=== PATIENT | female | born 1975 | race Caucasian/White ===

== ENCOUNTER 2021-03-17 18:04 | Inpatient (IN) | payer OTHER, MEDICARE ==
[~2021-03-17 18:04] MED LIST: Iopamidol 370 76% 100 ML VIAL ONE
[2021-03-17 18:46] LABS: Actual Bicarbonate (HCO3a) 23.6 mEq/L (22-28); Analyzer IN Cardio ER; Base Excess (BEa) -0.3 mEq/L (-2.0 to +3.0); CO2 Tension 35.9 mmHg (35.0-45.0); Calcium, Ionized (arterial) 1.06 mmol/L (1.12-1.30); Carboxyhemoglobin (COHb) 0.3 gm% (0.0-3.0); Hemoglobin (Hb) 11.1 g/dL (12.0-16.0); O2 Tension (PaO2), arterial 150.8 mmHg (80.0-100.0); Potassium - ABG Lab 3.92 mmol/L (3.70-5.30); pH, Arterial 7.44 (7.35-7.45)
[2021-03-17 18:48] LABS: ALV-art Gradient 517.325 mmHg (0-20); Puncture Site RRA
[2021-03-17] MEDS ORDERED: Lorazepam 2 MG/ML VIAL ONE (19:38)
[2021-03-17] MEDS ORDERED: Acetaminophen 325 MG TAB PO PRN (20:05)
[2021-03-17] MEDS ORDERED: Ondansetron PF 4 MG/2 ML Vial IVP PRN (20:05)
[2021-03-17] MEDS ORDERED: Acetaminophen 500 MG TAB ONE (20:09)
[2021-03-17] MEDS ORDERED: Dextrose 5% in Water 1,000 ML IV PRN (20:10)
[2021-03-17] MEDS ORDERED: Dextrose 50% Abboject 50 ML SYRINGE SLOW IVP PRN (20:10)
[2021-03-17] MEDS ORDERED: HumaLOG 300 UNITS/3 ML VIAL SC PRN (20:10)
[2021-03-17] MEDS ORDERED: Loperamide HCl 2 MG CAP PO PRN (20:11)
[2021-03-17 20:34] LABS: Hemoglobin 10.6 g/dL (12.0-16.0); Mean Corpuscular Hemoglobin 28.7 pg (27.0-31.0); Mean Corpuscular Volume 92.8 fL (78.0-98.0); RBC Distribution Width 14.4 % (11.5-14.5); Red Blood Cell (RBC) Count 3.68 mill/uL (4.20-5.40)
[2021-03-17 20:41] LABS: ALT (SGPT) 25 U/L (8-55); AST (SGOT) 58 U/L (5-34); Alkaline Phosphatase 54 U/L (40-110); Anion Gap 15 mmol/L (10-20); BUN (Urea Nitrogen) 20 mg/dL (7.0-18.7); Bilirubin, Total 0.3 mg/dL (0.2-1.2); CK (CPK) 858 U/L (29-168); Calc. Creatinine Clearance 0 mL/min (70-130); Calcium 7.6 mg/dL (7.8-10.44); Carbon Dioxide 20 mmol/L (22-29); Chloride 108 mmol/L (98-107); Globulin 3.1 g/dL (2.4-3.5); Glucose 125 mg/dL (70-105); Potassium 4.3 mmol/L (3.5-5.1); Protein, Total 6.1 g/dL (6.0-8.3); Sodium 139 mmol/L (136-145)
[2021-03-17 20:57] LABS: Band 8 % (5-11); Lymphocytes 8 % (21-51); MDiff Complete? YES; Mean Platelet Volume 7.8 fL (7.4-10.4); Monocytes 4 % (0-10); Neutrophil 80 % (42-75); Platelet Count 291 thou/uL (130-400); White Blood Cell (WBC) Count 9.9 thou/uL (4.8-10.8)
[2021-03-17 21:02] LABS: CKMB 2.4 ng/mL (0-6.6)
[2021-03-18] MEDS: Albuterol 200 PUFF (6.7GM INHALER) INH PRN (00:21)
[2021-03-18] MEDS: Apixaban 5 MG TAB PO SCH ×3 (00:21→20:45)
[2021-03-18] MEDS ORDERED: Cephalexin 250 MG/5 ML Oral Suspension PO SCH (03:00)
[2021-03-18 04:19] LABS: #Lymphocytes 1.2 thou/uL (1.20-3.40); #Monocytes 0.4 thou/uL (0.11-0.59); #Neutrophils 8.1 thou/uL (1.40-6.50); %Basophils 0.2 % (0.0-1.0); %Eosinophils 0.2 % (0.0-10.0); %Lymphocytes 12.2 % (21.0-51.0); %Monocytes 3.8 % (0.0-10.0); %Neutrophils 83.6 % (42.0-75.0); Mean Corpuscular Hemoglobin 28.5 pg (27.0-31.0); Mean Corpuscular Volume 91.9 fL (78.0-98.0); Mean Platelet Volume 8.2 fL (7.4-10.4); Platelet Count 294 thou/uL (130-400); RBC Distribution Width 14.5 % (11.5-14.5); Red Blood Cell (RBC) Count 3.87 mill/uL (4.20-5.40); White Blood Cell (WBC) Count 9.7 thou/uL (4.8-10.8)
[2021-03-18 04:23] LABS: Anion Gap 14 mmol/L (10-20); BUN (Urea Nitrogen) 23 mg/dL (7.0-18.7); Calc. Creatinine Clearance 151 mL/min (70-130); Calcium 8.3 mg/dL (7.8-10.44); Carbon Dioxide 23 mmol/L (22-29); Chloride 106 mmol/L (98-107); Glucose 122 mg/dL (70-105); Potassium 4.1 mmol/L (3.5-5.1); Sodium 139 mmol/L (136-145)
[2021-03-18 04:25] LABS: CRP (Inflammatory) 13.5 mg/dL (= or < 0.5)
[2021-03-18] MEDS: Pantoprazole 40 MG VIAL IVP SCH (10:03)
[2021-03-18] MEDS: Cephalexin 250 MG/5 ML Oral Suspension PO SCH ×4 (10:03→20:45)
[2021-03-18] MEDS: BARICITINIB 2 MG TAB PO SCH (10:03)
[2021-03-18] MEDS: Dexamethasone 10 MG/ML VIAL SLOW IVP SCH ×2 (10:03→20:45)
[2021-03-18] MEDS: Cholecalciferol 1,000 UNITS (25 MCG) TAB PO SCH (10:04)
[2021-03-18] MEDS: Zinc Sulfate 220 MG CAP PO SCH (10:04)
[2021-03-18] MEDS: Saccharomyces boulardii 250 MG CAP PO SCH (14:24)
[2021-03-18] MEDS: Lorazepam 0.5 MG TAB PO PRN (21:52)
[2021-03-19 04:12] LABS: #Lymphocytes 0.8 thou/uL (1.20-3.40); #Monocytes 0.3 thou/uL (0.11-0.59); #Neutrophils 9.2 thou/uL (1.40-6.50); %Eosinophils 0.3 % (0.0-10.0); %Lymphocytes 7.9 % (21.0-51.0); %Monocytes 2.5 % (0.0-10.0); %Neutrophils 89.4 % (42.0-75.0); Hemoglobin 10.9 g/dL (12.0-16.0); Mean Corpuscular HGB CONC 30.9 g/dL (32.0-36.0); Mean Corpuscular Hemoglobin 29.4 pg (27.0-31.0); Mean Corpuscular Volume 95.1 fL (78.0-98.0); Mean Platelet Volume 8.3 fL (7.4-10.4); Platelet Count 279 thou/uL (130-400); RBC Distribution Width 14.6 % (11.5-14.5); Red Blood Cell (RBC) Count 3.71 mill/uL (4.20-5.40); White Blood Cell (WBC) Count 10.3 thou/uL (4.8-10.8)
[2021-03-19 04:18] LABS: Anion Gap 14 mmol/L (10-20); BUN (Urea Nitrogen) 25 mg/dL (7.0-18.7); Calc. Creatinine Clearance 204 mL/min (70-130); Calcium 8.6 mg/dL (7.8-10.44); Carbon Dioxide 22 mmol/L (22-29); Chloride 108 mmol/L (98-107); Glucose 134 mg/dL (70-105); Potassium 4.3 mmol/L (3.5-5.1); Sodium 140 mmol/L (136-145)
[2021-03-19 04:21] LABS: ALT (SGPT) 30 U/L (8-55); AST (SGOT) 49 U/L (5-34); Albumin 3.1 g/dL (3.5-5.0); Alkaline Phosphatase 57 U/L (40-110); Bilirubin, Direct 0.2 mg/dL (0.1-0.3); Bilirubin, Total 0.3 mg/dL (0.2-1.2); Protein, Total 6.7 g/dL (6.0-8.3)
[2021-03-19 04:23] LABS: Troponin I 0.029 ng/mL (< 0.028)
[2021-03-19] MEDS: Dexamethasone 10 MG/ML VIAL SLOW IVP SCH ×2 (09:51→20:37)
[2021-03-19] MEDS: Cholecalciferol 1,000 UNITS (25 MCG) TAB PO SCH (09:51)
[2021-03-19] MEDS: Zinc Sulfate 220 MG CAP PO SCH (09:51)
[2021-03-19] MEDS: Losartan 25 MG TAB PO SCH (09:51)
[2021-03-19] MEDS: Apixaban 5 MG TAB PO SCH ×2 (09:51→20:38)
[2021-03-19] MEDS: Cephalexin 250 MG/5 ML Oral Suspension PO SCH ×4 (09:51→20:38)
[2021-03-19] MEDS: Pantoprazole 40 MG VIAL IVP SCH (09:52)
[2021-03-19] MEDS: Lorazepam 0.5 MG TAB PO PRN ×2 (10:01→20:38)
[2021-03-19] MEDS: BARICITINIB 2 MG TAB PO SCH (10:02)
[2021-03-19] MEDS: Saccharomyces boulardii 250 MG CAP PO SCH (15:01)
[2021-03-19] MEDS: guaiFENesin ER 600 MG TAB PO SCH (20:38)
[2021-03-19] MEDS: Albuterol 200 PUFF (6.7GM INHALER) INH PRN (20:38)
[2021-03-20 04:21] LABS: #Lymphocytes 0.6 thou/uL (1.20-3.40); #Monocytes 0.3 thou/uL (0.11-0.59); #Neutrophils 9.2 thou/uL (1.40-6.50); %Eosinophils 0.1 % (0.0-10.0); %Lymphocytes 5.9 % (21.0-51.0); %Monocytes 3.4 % (0.0-10.0); %Neutrophils 90.6 % (42.0-75.0); Hemoglobin 10.8 g/dL (12.0-16.0); Mean Corpuscular HGB CONC 31.2 g/dL (32.0-36.0); Mean Corpuscular Hemoglobin 28.9 pg (27.0-31.0); Mean Corpuscular Volume 92.8 fL (78.0-98.0); Mean Platelet Volume 8.7 fL (7.4-10.4); Platelet Count 260 thou/uL (130-400); RBC Distribution Width 14.6 % (11.5-14.5); Red Blood Cell (RBC) Count 3.73 mill/uL (4.20-5.40); White Blood Cell (WBC) Count 10.1 thou/uL (4.8-10.8)
[2021-03-20 04:35] LABS: BUN (Urea Nitrogen) 25 mg/dL (7.0-18.7); Calc. Creatinine Clearance 182 mL/min (70-130); Calcium 8.3 mg/dL (7.8-10.44); Chloride 107 mmol/L (98-107); Glucose 201 mg/dL (70-105); Phosphorus 3.5 mg/dL (2.3-4.7); Potassium 4.2 mmol/L (3.5-5.1); Sodium 140 mmol/L (136-145)
[2021-03-20 04:37] LABS: CRP (Inflammatory) 3.18 mg/dL (= or < 0.5); Magnesium 2.6 mg/dL (1.6-2.6)
[2021-03-20] MEDS: Cephalexin 250 MG/5 ML Oral Suspension PO SCH (09:14)
[2021-03-20] MEDS: Zinc Sulfate 220 MG CAP PO SCH (09:15)
[2021-03-20] MEDS: Ascorbic Acid 500 mg Chewable Tablet PO SCH (09:15)
[2021-03-20] MEDS: Losartan 25 MG TAB PO SCH (09:15)
[2021-03-20] MEDS: Pantoprazole 40 MG VIAL IVP SCH (09:15)
[2021-03-20] MEDS: Cholecalciferol 1,000 UNITS (25 MCG) TAB PO SCH (09:15)
[2021-03-20] MEDS: Dexamethasone 10 MG/ML VIAL SLOW IVP SCH ×2 (09:15→21:05)
[2021-03-20] MEDS: BARICITINIB 2 MG TAB PO SCH (09:15)
[2021-03-20] MEDS: guaiFENesin ER 600 MG TAB PO SCH ×2 (09:15→21:05)
[2021-03-20] MEDS: Multivit, Therapeutic 1 TAB PO SCH (09:15)
[2021-03-20] MEDS: Apixaban 5 MG TAB PO SCH ×2 (09:15→21:05)
[2021-03-20] MEDS: Saccharomyces boulardii 250 MG CAP PO SCH (16:24)
[2021-03-20] MEDS: Lorazepam 0.5 MG TAB PO PRN (21:05)
[2021-03-21 05:22] LABS: #Lymphocytes 0.7 thou/uL (1.20-3.40); #Monocytes 0.2 thou/uL (0.11-0.59); #Neutrophils 8.2 thou/uL (1.40-6.50); %Basophils 0.1 % (0.0-1.0); %Eosinophils 0.2 % (0.0-10.0); %Lymphocytes 7.9 % (21.0-51.0); %Monocytes 2.7 % (0.0-10.0); %Neutrophils 89.2 % (42.0-75.0); Hemoglobin 11.3 g/dL (12.0-16.0); Mean Corpuscular HGB CONC 31.9 g/dL (32.0-36.0); Mean Corpuscular Hemoglobin 29.3 pg (27.0-31.0); Mean Corpuscular Volume 91.7 fL (78.0-98.0); Mean Platelet Volume 8.4 fL (7.4-10.4); Platelet Count 243 thou/uL (130-400); RBC Distribution Width 14.3 % (11.5-14.5); Red Blood Cell (RBC) Count 3.86 mill/uL (4.20-5.40); White Blood Cell (WBC) Count 9.2 thou/uL (4.8-10.8)
[2021-03-21 05:56] LABS: BUN (Urea Nitrogen) 25 mg/dL (7.0-18.7); CRP (Inflammatory) 1.35 mg/dL (= or < 0.5); Calc. Creatinine Clearance 209 mL/min (70-130); Calcium 8.6 mg/dL (7.8-10.44); Chloride 106 mmol/L (98-107); Glucose 150 mg/dL (70-105); Potassium 4.4 mmol/L (3.5-5.1); Sodium 140 mmol/L (136-145)
[2021-03-21] MEDS: Cholecalciferol 1,000 UNITS (25 MCG) TAB PO SCH (09:21)
[2021-03-21] MEDS: Dexamethasone 10 MG/ML VIAL SLOW IVP SCH ×2 (09:21→21:12)
[2021-03-21] MEDS: Losartan 25 MG TAB PO SCH (09:21)
[2021-03-21] MEDS: BARICITINIB 2 MG TAB PO SCH (09:21)
[2021-03-21] MEDS: guaiFENesin ER 600 MG TAB PO SCH ×2 (09:22→21:12)
[2021-03-21] MEDS: Multivit, Therapeutic 1 TAB PO SCH (09:22)
[2021-03-21] MEDS: Ascorbic Acid 500 mg Chewable Tablet PO SCH (09:22)
[2021-03-21] MEDS: Zinc Sulfate 220 MG CAP PO SCH (09:22)
[2021-03-21] MEDS: Apixaban 5 MG TAB PO SCH ×2 (09:22→21:12)
[2021-03-21 16:23] LABS: Anion Gap 19 mmol/L (10-20); Carbon Dioxide 18 mmol/L (22-29)
[2021-03-21 16:23] LABS: Carbon Dioxide 23 mmol/L (22-29)
[2021-03-21 16:24] LABS: Anion Gap 15 mmol/L (10-20)
[2021-03-21] MEDS: Saccharomyces boulardii 250 MG CAP PO SCH (16:48)
[2021-03-21] MEDS: Lorazepam 0.5 MG TAB PO PRN (21:13)
[2021-03-22 03:32] LABS: #Basophils 0.1 thou/uL (0.0-0.2); #Lymphocytes 0.7 thou/uL (1.20-3.40); #Monocytes 0.2 thou/uL (0.11-0.59); #Neutrophils 8.3 thou/uL (1.40-6.50); %Basophils 0.6 % (0.0-1.0); %Eosinophils 0.2 % (0.0-10.0); %Lymphocytes 7.4 % (21.0-51.0); %Monocytes 1.9 % (0.0-10.0); %Neutrophils 89.9 % (42.0-75.0); Hemoglobin 11.3 g/dL (12.0-16.0); Mean Corpuscular HGB CONC 31.8 g/dL (32.0-36.0); Mean Corpuscular Volume 91.1 fL (78.0-98.0); Mean Platelet Volume 8.6 fL (7.4-10.4); Platelet Count 214 thou/uL (130-400); RBC Distribution Width 14.3 % (11.5-14.5); Red Blood Cell (RBC) Count 3.88 mill/uL (4.20-5.40); White Blood Cell (WBC) Count 9.2 thou/uL (4.8-10.8)
[2021-03-22 03:47] LABS: ALT (SGPT) 64 U/L (8-55); AST (SGOT) 54 U/L (5-34); Albumin 3.2 g/dL (3.5-5.0); Alkaline Phosphatase 70 U/L (40-110); Anion Gap 12 mmol/L (10-20); BUN (Urea Nitrogen) 22 mg/dL (7.0-18.7); Bilirubin, Direct 0.2 mg/dL (0.1-0.3); Bilirubin, Total 0.3 mg/dL (0.2-1.2); Calc. Creatinine Clearance 182 mL/min (70-130); Calcium 8.4 mg/dL (7.8-10.44); Carbon Dioxide 26 mmol/L (22-29); Chloride 103 mmol/L (98-107); Glucose 218 mg/dL (70-105); Potassium 4.4 mmol/L (3.5-5.1); Protein, Total 6.6 g/dL (6.0-8.3); Sodium 137 mmol/L (136-145)
[2021-03-22] MEDS: BARICITINIB 2 MG TAB PO SCH (10:20)
[2021-03-22] MEDS: guaiFENesin ER 600 MG TAB PO SCH ×2 (10:20→21:57)
[2021-03-22] MEDS: Cholecalciferol 1,000 UNITS (25 MCG) TAB PO SCH (10:20)
[2021-03-22] MEDS: Zinc Sulfate 220 MG CAP PO SCH (10:20)
[2021-03-22] MEDS: Losartan 25 MG TAB PO SCH (10:20)
[2021-03-22] MEDS: Apixaban 5 MG TAB PO SCH ×2 (10:20→21:57)
[2021-03-22] MEDS: Ascorbic Acid 500 mg Chewable Tablet PO SCH (10:20)
[2021-03-22] MEDS: Dexamethasone 10 MG/ML VIAL SLOW IVP SCH ×2 (10:21→21:57)
[2021-03-22] MEDS: Multivit, Therapeutic 1 TAB PO SCH (10:22)
[2021-03-22] MEDS: Saccharomyces boulardii 250 MG CAP PO SCH (16:59)
[2021-03-22] MEDS: Lorazepam 0.5 MG TAB PO PRN (21:57)
[2021-03-23] MEDS: Losartan 25 MG TAB PO SCH (10:00)
[2021-03-23] MEDS: Multivit, Therapeutic 1 TAB PO SCH (10:01)
[2021-03-23] MEDS: guaiFENesin ER 600 MG TAB PO SCH ×2 (10:01→20:35)
[2021-03-23] MEDS: Cholecalciferol 1,000 UNITS (25 MCG) TAB PO SCH (10:01)
[2021-03-23] MEDS: BARICITINIB 2 MG TAB PO SCH (10:01)
[2021-03-23] MEDS: Zinc Sulfate 220 MG CAP PO SCH (10:01)
[2021-03-23] MEDS: Ascorbic Acid 500 mg Chewable Tablet PO SCH (10:02)
[2021-03-23] MEDS: Dexamethasone 10 MG/ML VIAL SLOW IVP SCH ×2 (10:02→20:35)
[2021-03-23] MEDS: Apixaban 5 MG TAB PO SCH ×2 (10:02→20:35)
[2021-03-23] MEDS: Saccharomyces boulardii 250 MG CAP PO SCH (16:00)
[2021-03-23] MEDS: Lorazepam 0.5 MG TAB PO PRN (20:35)
[2021-03-24 04:02] LABS: #Eosinphils 0.1 thou/uL (0.0-0.7); #Lymphocytes 0.8 thou/uL (1.20-3.40); #Monocytes 0.2 thou/uL (0.11-0.59); #Neutrophils 9.5 thou/uL (1.40-6.50); %Eosinophils 0.8 % (0.0-10.0); %Lymphocytes 7.5 % (21.0-51.0); %Monocytes 1.5 % (0.0-10.0); %Neutrophils 90.2 % (42.0-75.0); Mean Corpuscular HGB CONC 32.2 g/dL (32.0-36.0); Mean Corpuscular Hemoglobin 28.6 pg (27.0-31.0); Mean Corpuscular Volume 88.8 fL (78.0-98.0); Mean Platelet Volume 8.2 fL (7.4-10.4); Platelet Count 253 thou/uL (130-400); RBC Distribution Width 14.4 % (11.5-14.5); White Blood Cell (WBC) Count 10.5 thou/uL (4.8-10.8)
[2021-03-24 04:18] LABS: Anion Gap 11 mmol/L (10-20); BUN (Urea Nitrogen) 22 mg/dL (7.0-18.7); CRP (Inflammatory) 0.94 mg/dL (= or < 0.5); Calc. Creatinine Clearance 226 mL/min (70-130); Calcium 8.8 mg/dL (7.8-10.44); Carbon Dioxide 24 mmol/L (22-29); Chloride 104 mmol/L (98-107); Glucose 182 mg/dL (70-105); Potassium 4.9 mmol/L (3.5-5.1); Sodium 134 mmol/L (136-145)
[2021-03-24] MEDS: HumaLOG 300 UNITS/3 ML VIAL SC PRN (06:03)
[2021-03-24] MEDS: Cholecalciferol 1,000 UNITS (25 MCG) TAB PO SCH (09:26)
[2021-03-24] MEDS: BARICITINIB 2 MG TAB PO SCH (09:26)
[2021-03-24] MEDS: Ascorbic Acid 500 mg Chewable Tablet PO SCH (09:26)
[2021-03-24] MEDS: Multivit, Therapeutic 1 TAB PO SCH (09:27)
[2021-03-24] MEDS: Losartan 25 MG TAB PO SCH (09:27)
[2021-03-24] MEDS: Dexamethasone 10 MG/ML VIAL SLOW IVP SCH ×2 (09:27→20:05)
[2021-03-24] MEDS: guaiFENesin ER 600 MG TAB PO SCH ×2 (09:27→20:05)
[2021-03-24] MEDS: Apixaban 5 MG TAB PO SCH ×2 (09:27→20:05)
[2021-03-24] MEDS: Zinc Sulfate 220 MG CAP PO SCH (09:27)
[2021-03-24] MEDS: Lorazepam 0.5 MG TAB PO PRN ×2 (09:32→23:09)
[2021-03-24] MEDS: Saccharomyces boulardii 250 MG CAP PO SCH (15:27)
[2021-03-25 04:14] LABS: ALT (SGPT) 75 U/L (8-55); AST (SGOT) 36 U/L (5-34); Albumin 3.2 g/dL (3.5-5.0); Alkaline Phosphatase 74 U/L (40-110); Bilirubin, Direct 0.2 mg/dL (0.1-0.3); Bilirubin, Total 0.5 mg/dL (0.2-1.2); Protein, Total 6.7 g/dL (6.0-8.3)
[2021-03-25] MEDS: Zinc Sulfate 220 MG CAP PO SCH (08:17)
[2021-03-25] MEDS: Apixaban 5 MG TAB PO SCH ×2 (08:17→20:50)
[2021-03-25] MEDS: Cholecalciferol 1,000 UNITS (25 MCG) TAB PO SCH (08:17)
[2021-03-25] MEDS: Multivit, Therapeutic 1 TAB PO SCH (08:17)
[2021-03-25] MEDS: guaiFENesin ER 600 MG TAB PO SCH ×2 (08:18→20:50)
[2021-03-25] MEDS: BARICITINIB 2 MG TAB PO SCH (08:18)
[2021-03-25] MEDS: Ascorbic Acid 500 mg Chewable Tablet PO SCH (08:18)
[2021-03-25] MEDS: Dexamethasone 10 MG/ML VIAL SLOW IVP SCH ×2 (08:18→20:50)
[2021-03-25] MEDS: Lorazepam 0.5 MG TAB PO PRN (08:39)
[2021-03-25] MEDS: Losartan 25 MG TAB PO SCH (10:02)
[2021-03-25] MEDS: HYDROcodone/Acetaminophen 5/325 mg Tablet PO PRN ×2 (12:47→20:50)
[2021-03-25] MEDS: Saccharomyces boulardii 250 MG CAP PO SCH (16:14)
[2021-03-26] MEDS: guaiFENesin ER 600 MG TAB PO SCH ×2 (07:47→21:13)
[2021-03-26] MEDS: Ascorbic Acid 500 mg Chewable Tablet PO SCH (07:47)
[2021-03-26] MEDS: Apixaban 5 MG TAB PO SCH ×2 (07:47→21:13)
[2021-03-26] MEDS: BARICITINIB 2 MG TAB PO SCH (07:47)
[2021-03-26] MEDS: Dexamethasone 10 MG/ML VIAL SLOW IVP SCH ×2 (07:48→21:13)
[2021-03-26] MEDS: Multivit, Therapeutic 1 TAB PO SCH (07:48)
[2021-03-26] MEDS: HYDROcodone/Acetaminophen 5/325 mg Tablet PO PRN ×2 (07:48→21:16)
[2021-03-26] MEDS: Zinc Sulfate 220 MG CAP PO SCH (07:48)
[2021-03-26] MEDS: Cholecalciferol 1,000 UNITS (25 MCG) TAB PO SCH (07:48)
[2021-03-26] MEDS: Losartan 25 MG TAB PO SCH (09:03)
[2021-03-26] MEDS ORDERED: Tamsulosin HCl 0.4 MG CAP PO SCH (09:45)
[2021-03-26] MEDS: Saccharomyces boulardii 250 MG CAP PO SCH (14:29)
[2021-03-26] MEDS: HumaLOG 300 UNITS/3 ML VIAL SC PRN (16:00)
[2021-03-26] MEDS: Lorazepam 0.5 MG TAB PO PRN (21:13)
[2021-03-27] MEDS: Cholecalciferol 1,000 UNITS (25 MCG) TAB PO SCH (08:19)
[2021-03-27] MEDS: Ascorbic Acid 500 mg Chewable Tablet PO SCH (08:19)
[2021-03-27] MEDS: guaiFENesin ER 600 MG TAB PO SCH ×2 (08:20→21:12)
[2021-03-27] MEDS: Zinc Sulfate 220 MG CAP PO SCH (08:20)
[2021-03-27] MEDS: Apixaban 5 MG TAB PO SCH ×2 (08:20→21:11)
[2021-03-27] MEDS: BARICITINIB 2 MG TAB PO SCH (08:20)
[2021-03-27] MEDS: Tamsulosin HCl 0.4 MG CAP PO SCH (08:21)
[2021-03-27] MEDS: Dexamethasone 10 MG/ML VIAL SLOW IVP SCH ×2 (08:22→21:11)
[2021-03-27] MEDS: Multivit, Therapeutic 1 TAB PO SCH (08:22)
[2021-03-27] MEDS: Lorazepam 0.5 MG TAB PO PRN ×2 (08:30→21:11)
[2021-03-27] MEDS: HYDROcodone/Acetaminophen 5/325 mg Tablet PO PRN ×3 (08:30→21:10)
[2021-03-27] MEDS: Saccharomyces boulardii 250 MG CAP PO SCH (15:04)
[2021-03-28] MEDS: HumaLOG 300 UNITS/3 ML VIAL SC PRN (05:52)
[2021-03-28 06:21] LABS: ALT (SGPT) 62 U/L (8-55); AST (SGOT) 21 U/L (5-34); Albumin 3.4 g/dL (3.5-5.0); Alkaline Phosphatase 66 U/L (40-110); Anion Gap 14 mmol/L (10-20); BUN (Urea Nitrogen) 27 mg/dL (7.0-18.7); Bilirubin, Direct 0.2 mg/dL (0.1-0.3); Bilirubin, Total 0.4 mg/dL (0.2-1.2); Calc. Creatinine Clearance 220 mL/min (70-130); Calcium 9.1 mg/dL (7.8-10.44); Carbon Dioxide 24 mmol/L (22-29); Chloride 104 mmol/L (98-107); Glucose 140 mg/dL (70-105); Potassium 4.9 mmol/L (3.5-5.1); Protein, Total 6.7 g/dL (6.0-8.3); Sodium 137 mmol/L (136-145)
[2021-03-28] MEDS: Zinc Sulfate 220 MG CAP PO SCH (08:02)
[2021-03-28] MEDS: BARICITINIB 2 MG TAB PO SCH (08:02)
[2021-03-28] MEDS: Dexamethasone 10 MG/ML VIAL SLOW IVP SCH ×2 (08:02→20:38)
[2021-03-28] MEDS: Ascorbic Acid 500 mg Chewable Tablet PO SCH (08:02)
[2021-03-28] MEDS: Apixaban 5 MG TAB PO SCH ×2 (08:03→20:37)
[2021-03-28] MEDS: guaiFENesin ER 600 MG TAB PO SCH ×2 (08:03→20:37)
[2021-03-28] MEDS: Cholecalciferol 1,000 UNITS (25 MCG) TAB PO SCH (08:03)
[2021-03-28] MEDS: Multivit, Therapeutic 1 TAB PO SCH (08:03)
[2021-03-28] MEDS: Tamsulosin HCl 0.4 MG CAP PO SCH (08:03)
[2021-03-28] MEDS: HYDROcodone/Acetaminophen 5/325 mg Tablet PO PRN ×2 (08:11→20:37)
[2021-03-28] MEDS: Lorazepam 0.5 MG TAB PO PRN ×2 (11:37→20:37)
[2021-03-28] MEDS: Saccharomyces boulardii 250 MG CAP PO SCH (14:29)
[2021-03-29] MEDS: guaiFENesin ER 600 MG TAB PO SCH ×2 (07:54→20:28)
[2021-03-29] MEDS: Ascorbic Acid 500 mg Chewable Tablet PO SCH (07:54)
[2021-03-29] MEDS: HYDROcodone/Acetaminophen 5/325 mg Tablet PO PRN ×2 (07:55→20:28)
[2021-03-29] MEDS: Tamsulosin HCl 0.4 MG CAP PO SCH (07:55)
[2021-03-29] MEDS: Cholecalciferol 1,000 UNITS (25 MCG) TAB PO SCH (07:56)
[2021-03-29] MEDS: Apixaban 5 MG TAB PO SCH ×2 (07:56→20:28)
[2021-03-29] MEDS: Dexamethasone 10 MG/ML VIAL SLOW IVP SCH (07:56)
[2021-03-29] MEDS: Zinc Sulfate 220 MG CAP PO SCH (07:56)
[2021-03-29] MEDS: BARICITINIB 2 MG TAB PO SCH (07:56)
[2021-03-29] MEDS: Multivit, Therapeutic 1 TAB PO SCH (07:56)
[2021-03-29] MEDS: Lorazepam 0.5 MG TAB PO PRN ×2 (12:44→20:28)
[2021-03-29] MEDS: Saccharomyces boulardii 250 MG CAP PO SCH (15:32)
[2021-03-29] MEDS: Mometasone 100 MCG/Formoterol 5 MCG 120 PUFF INHALER INH SCH (19:11)
[2021-03-30] MEDS: Mometasone 100 MCG/Formoterol 5 MCG 120 PUFF INHALER INH SCH ×2 (05:04→17:25)
[2021-03-30] MEDS: HYDROcodone/Acetaminophen 5/325 mg Tablet PO PRN ×2 (08:05→21:28)
[2021-03-30] MEDS: guaiFENesin ER 600 MG TAB PO SCH ×2 (08:06→21:29)
[2021-03-30] MEDS: BARICITINIB 2 MG TAB PO SCH (08:06)
[2021-03-30] MEDS: Apixaban 5 MG TAB PO SCH ×2 (08:07→21:29)
[2021-03-30] MEDS: Multivit, Therapeutic 1 TAB PO SCH (08:07)
[2021-03-30] MEDS: Tamsulosin HCl 0.4 MG CAP PO SCH (08:07)
[2021-03-30] MEDS: Cholecalciferol 1,000 UNITS (25 MCG) TAB PO SCH (08:07)
[2021-03-30] MEDS: Zinc Sulfate 220 MG CAP PO SCH (08:07)
[2021-03-30] MEDS: Ascorbic Acid 500 mg Chewable Tablet PO SCH (08:07)
[2021-03-30] MEDS: Dexamethasone 10 MG/ML VIAL SLOW IVP SCH (08:07)
[2021-03-30] MEDS: Lorazepam 0.5 MG TAB PO PRN ×2 (12:00→21:27)
[2021-03-30] MEDS: HumaLOG 300 UNITS/3 ML VIAL SC PRN ×2 (12:01→17:25)
[2021-03-30] MEDS: Saccharomyces boulardii 250 MG CAP PO SCH (15:29)
[2021-03-31] MEDS: Mometasone 100 MCG/Formoterol 5 MCG 120 PUFF INHALER INH SCH ×2 (05:40→17:54)
[2021-03-31] MEDS: Ascorbic Acid 500 mg Chewable Tablet PO SCH (08:09)
[2021-03-31] MEDS: Zinc Sulfate 220 MG CAP PO SCH (08:09)
[2021-03-31] MEDS: BARICITINIB 2 MG TAB PO SCH (08:09)
[2021-03-31] MEDS: Dexamethasone 10 MG/ML VIAL SLOW IVP SCH (08:09)
[2021-03-31] MEDS: Cholecalciferol 1,000 UNITS (25 MCG) TAB PO SCH (08:10)
[2021-03-31] MEDS: Multivit, Therapeutic 1 TAB PO SCH (08:10)
[2021-03-31] MEDS: HYDROcodone/Acetaminophen 5/325 mg Tablet PO PRN ×2 (08:10→21:00)
[2021-03-31] MEDS: Apixaban 5 MG TAB PO SCH ×2 (08:10→21:00)
[2021-03-31] MEDS: Tamsulosin HCl 0.4 MG CAP PO SCH (08:10)
[2021-03-31] MEDS: guaiFENesin ER 600 MG TAB PO SCH ×2 (08:11→21:00)
[2021-03-31] MEDS: Lorazepam 0.5 MG TAB PO PRN ×2 (11:18→21:00)
[2021-03-31] MEDS: Saccharomyces boulardii 250 MG CAP PO SCH (15:43)
[2021-04-01] MEDS: Mometasone 100 MCG/Formoterol 5 MCG 120 PUFF INHALER INH SCH ×2 (05:13→18:40)
[2021-04-01] MEDS: Tamsulosin HCl 0.4 MG CAP PO SCH (08:29)
[2021-04-01] MEDS: guaiFENesin ER 600 MG TAB PO SCH ×2 (08:30→20:14)
[2021-04-01] MEDS: Zinc Sulfate 220 MG CAP PO SCH (08:30)
[2021-04-01] MEDS: Cholecalciferol 1,000 UNITS (25 MCG) TAB PO SCH (08:30)
[2021-04-01] MEDS: Dexamethasone 10 MG/ML VIAL SLOW IVP SCH (08:30)
[2021-04-01] MEDS: Ascorbic Acid 500 mg Chewable Tablet PO SCH (08:30)
[2021-04-01] MEDS: HYDROcodone/Acetaminophen 5/325 mg Tablet PO PRN ×2 (08:30→20:13)
[2021-04-01] MEDS: Multivit, Therapeutic 1 TAB PO SCH (08:30)
[2021-04-01] MEDS: Apixaban 5 MG TAB PO SCH ×2 (08:30→20:13)
[2021-04-01] MEDS: Lorazepam 0.5 MG TAB PO PRN ×2 (08:31→20:13)
[2021-04-01 09:06] LABS: Bacteria/HPF 4+ HPF (None Seen); Bilirubin Negative (Negative); Blood, Urine Trace (Negative); Clarity Turbid (Clear); Glucose, Urine (Dipstick) Normal (Negative); Ketone, Urine Negative (Negative); Leukocyte 500 Leu/uL (Negative); Nitrite Negative (Negative); Protein, Urine (Dipstick) Negative (Neg-Trace); Specific Gravity, Urine 1.018 (1.002-1.036); Squamous Epithelial 0-3 HPF (0-3); Urobilinogen Normal mg/dL (Less than 2); WBC/HPF Greater than 50 HPF (0-3)
[2021-04-01 09:07] LABS: Urine Culture Reflex Yes Yes
[2021-04-01] MEDS: cefTRIAXone\\ROCEPHIN 1 GM in Sodium Chloride 0.9% 100 ML IVPB SCH (10:23)
[2021-04-01] MEDS: Saccharomyces boulardii 250 MG CAP PO SCH (14:46)
[2021-04-02] MEDS: Mometasone 100 MCG/Formoterol 5 MCG 120 PUFF INHALER INH SCH ×2 (05:46→18:31)
[2021-04-02] MEDS: Ascorbic Acid 500 mg Chewable Tablet PO SCH (07:53)
[2021-04-02] MEDS: Tamsulosin HCl 0.4 MG CAP PO SCH (07:54)
[2021-04-02] MEDS: Zinc Sulfate 220 MG CAP PO SCH (07:54)
[2021-04-02] MEDS: guaiFENesin ER 600 MG TAB PO SCH ×2 (07:54→20:34)
[2021-04-02] MEDS: Cholecalciferol 1,000 UNITS (25 MCG) TAB PO SCH (07:54)
[2021-04-02] MEDS: Apixaban 5 MG TAB PO SCH ×2 (07:54→20:34)
[2021-04-02] MEDS: Dexamethasone 10 MG/ML VIAL SLOW IVP SCH (07:54)
[2021-04-02] MEDS: Multivit, Therapeutic 1 TAB PO SCH (07:54)
[2021-04-02] MEDS: HYDROcodone/Acetaminophen 5/325 mg Tablet PO PRN ×2 (08:00→20:45)
[2021-04-02] MEDS: cefTRIAXone\\ROCEPHIN 1 GM in Sodium Chloride 0.9% 100 ML IVPB SCH (09:50)
[2021-04-02] MEDS: Lorazepam 0.5 MG TAB PO PRN ×2 (09:55→22:18)
[2021-04-02] MEDS: Saccharomyces boulardii 250 MG CAP PO SCH (15:39)
[2021-04-03] MEDS: Mometasone 100 MCG/Formoterol 5 MCG 120 PUFF INHALER INH SCH ×2 (06:39→18:20)
[2021-04-03] MEDS: guaiFENesin ER 600 MG TAB PO SCH ×2 (07:51→20:23)
[2021-04-03] MEDS: Ascorbic Acid 500 mg Chewable Tablet PO SCH (07:51)
[2021-04-03] MEDS: Apixaban 5 MG TAB PO SCH ×2 (07:51→20:23)
[2021-04-03] MEDS: Dexamethasone 10 MG/ML VIAL SLOW IVP SCH (07:51)
[2021-04-03] MEDS: Tamsulosin HCl 0.4 MG CAP PO SCH (07:51)
[2021-04-03] MEDS: Zinc Sulfate 220 MG CAP PO SCH (07:52)
[2021-04-03] MEDS: Cholecalciferol 1,000 UNITS (25 MCG) TAB PO SCH (07:52)
[2021-04-03] MEDS: Multivit, Therapeutic 1 TAB PO SCH (07:52)
[2021-04-03] MEDS: HYDROcodone/Acetaminophen 5/325 mg Tablet PO PRN ×2 (08:01→20:23)
[2021-04-03] MEDS: Lorazepam 0.5 MG TAB PO PRN (09:57)
[2021-04-03] MEDS: cefTRIAXone\\ROCEPHIN 1 GM in Sodium Chloride 0.9% 100 ML IVPB SCH (09:57)
[2021-04-03] MEDS: Saccharomyces boulardii 250 MG CAP PO SCH (14:31)
[2021-04-03] MEDS: HumaLOG 300 UNITS/3 ML VIAL SC PRN (17:31)
[2021-04-04] MEDS: Lorazepam 0.5 MG TAB PO PRN ×3 (00:11→22:13)
[2021-04-04] MEDS: Zinc Sulfate 220 MG CAP PO SCH (08:35)
[2021-04-04] MEDS: Multivit, Therapeutic 1 TAB PO SCH (08:36)
[2021-04-04] MEDS: Ascorbic Acid 500 mg Chewable Tablet PO SCH (08:36)
[2021-04-04] MEDS: Tamsulosin HCl 0.4 MG CAP PO SCH (08:36)
[2021-04-04] MEDS: Apixaban 5 MG TAB PO SCH ×2 (08:37→21:09)
[2021-04-04] MEDS: HYDROcodone/Acetaminophen 5/325 mg Tablet PO PRN ×2 (08:37→21:09)
[2021-04-04] MEDS: Mometasone 100 MCG/Formoterol 5 MCG 120 PUFF INHALER INH SCH ×3 (08:38→19:21)
[2021-04-04] MEDS: guaiFENesin ER 600 MG TAB PO SCH ×2 (08:39→21:08)
[2021-04-04] MEDS: Dexamethasone 10 MG/ML VIAL SLOW IVP SCH (08:39)
[2021-04-04] MEDS: Cholecalciferol 1,000 UNITS (25 MCG) TAB PO SCH (08:39)
[2021-04-04 11:15] VITALS: BMI 50.3
[2021-04-04] MEDS: cefTRIAXone\\ROCEPHIN 1 GM in Sodium Chloride 0.9% 100 ML IVPB SCH (13:11)
[2021-04-04] MEDS: Saccharomyces boulardii 250 MG CAP PO SCH (15:47)
[2021-04-04] MEDS: Cefdinir 300 MG CAP PO SCH (21:09)
[2021-04-05] MEDS: Multivit, Therapeutic 1 TAB PO SCH (08:05)
[2021-04-05] MEDS: Cholecalciferol 1,000 UNITS (25 MCG) TAB PO SCH (08:05)
[2021-04-05] MEDS: Zinc Sulfate 220 MG CAP PO SCH (08:05)
[2021-04-05] MEDS: guaiFENesin ER 600 MG TAB PO SCH (08:05)
[2021-04-05] MEDS: Dexamethasone 10 MG/ML VIAL SLOW IVP SCH (08:05)
[2021-04-05] MEDS: Cefdinir 300 MG CAP PO SCH (08:05)
[2021-04-05] MEDS: Apixaban 5 MG TAB PO SCH (08:05)
[2021-04-05] MEDS: Tamsulosin HCl 0.4 MG CAP PO SCH (08:05)
[2021-04-05] MEDS: Ascorbic Acid 500 mg Chewable Tablet PO SCH (08:05)
[2021-04-05] MEDS: HYDROcodone/Acetaminophen 5/325 mg Tablet PO PRN (08:06)
[2021-04-05 08:16] VITALS: BP 122/84; TEMP 98.4
[2021-04-05] MEDS: Saccharomyces boulardii 250 MG CAP PO SCH (15:19)
== END 2021-04-05 17:52 | disposition home or self-care (01) | DRG 871 ==
LOC: ERS 18:04 → IMCU/EMU 19:50 → T4-B 03-26 11:22
PROVIDERS: ADMIT Internal Medicine; ATTEND Internal Medicine
PROC: 5A09557 Assistance with Respiratory Ventilation, Greater than 96 Consecutive Hours, Continuous Positive Airway Pressure (ICD-10-PCS; 2021-03-17)
PROC: 8E0ZXY6 Isolation (ICD-10-PCS; 2021-03-17)
PROC: XW0DXM6 Introduction of Baricitinib into Mouth and Pharynx, External Approach, New Technology Group 6 (ICD-10-PCS; principal; 2021-03-18)
PROC: 5A0935A Assistance with Respiratory Ventilation, Less than 24 Consecutive Hours, High Flow/Velocity Cannula (ICD-10-PCS; 2021-03-24)
PROC: 3E03329 Introduction of Other Anti-infective into Peripheral Vein, Percutaneous Approach (ICD-10-PCS; 2021-04-01)
DX: A41.89 Other specified sepsis (principal); J96.01 Acute respiratory failure with hypoxia; J12.82 Pneumonia due to coronavirus disease 2019; U07.1 COVID-19; M62.82 Rhabdomyolysis; D68.52 Prothrombin gene mutation; N17.9 Acute kidney failure, unspecified; Z68.43 Body mass index [BMI] 50.0-59.9, adult; N39.0 Urinary tract infection, site not specified; F14.10 Cocaine abuse, uncomplicated; F19.10 Other psychoactive substance abuse, uncomplicated; I95.9 Hypotension, unspecified; F43.10 Post-traumatic stress disorder, unspecified; F41.9 Anxiety disorder, unspecified; E11.22 Type 2 diabetes mellitus with diabetic chronic kidney disease; I12.9 Hypertensive chronic kidney disease with stage 1 through stage 4 chronic kidney disease, or unspecified chronic kidney disease; N18.2 Chronic kidney disease, stage 2 (mild); M19.90 Unspecified osteoarthritis, unspecified site; M50.20 Other cervical disc displacement, unspecified cervical region; E66.01 Morbid (severe) obesity due to excess calories; R65.20 Severe sepsis without septic shock; B96.20 Unspecified Escherichia coli [E. coli] as the cause of diseases classified elsewhere; Z86.711 Personal history of pulmonary embolism; Z86.718 Personal history of other venous thrombosis and embolism; Z79.01 Long term (current) use of anticoagulants; Z88.8 Allergy status to other drugs, medicaments and biological substances; Z86.73 Personal history of transient ischemic attack (TIA), and cerebral infarction without residual deficits; Z98.51 Tubal ligation status; Z85.3 Personal history of malignant neoplasm of breast; Z90.13 Acquired absence of bilateral breasts and nipples; Z90.721 Acquired absence of ovaries, unilateral; Z82.49 Family history of ischemic heart disease and other diseases of the circulatory system; Z87.891 Personal history of nicotine dependence; Z79.84 Long term (current) use of oral hypoglycemic drugs; Z79.899 Other long term (current) drug therapy
CPT/HCPCS: 36415; 36416; 36600; 71275; 80048; 80053; 80076; 81001; 82550; 82553; 82805; 83735; 83880; 84100; 84484; 85025; 86140; 87077; 87086; 87186; 93005; 93306; 94660; 96374; C9113; J0696; J1100; J1815; J2060; J3490; Q9967